=== PATIENT | male | born 1945 | race Caucasian/White ===

== ENCOUNTER → 2016-12-13 | Day surgery (SDC) | payer OTHER ==
[~2016-12-13] VITALS: Ht 175.3 cm; Wt 77.0 kg
[~2016-12-13] MED LIST: ASPI81TA28 PO; ATOR-26 PO; CLR10 PO; DC ALL ANTICOAGULANTS ONE; EZET10TA47 PO; FENTANYL CITRATE INJ 50 MCG/1 ML 2 ML VIAL ONE; FOLI1TAB7 PO; LIDOCAINE HCL 2% 2 ML VIAL (20MG/ML) ONE; LISI-729 PO; LOSA1TAB PO; MIDAZOLAM HCL 1 MG/ML 2ML VIAL ONE; PROPOFOL IV EMULSION 10 MG/ML 20 ML VIAL IV ONE; SODIUM CHLORIDE 0.9% 1000ML 1,000 ML IV SCH
[2016-12-13 07:00] VITALS: BP 168/78; PULSE 62; TEMP 36.2; O2SAT 99; Ht 175.3 cm; Wt 77.0 kg
[2016-12-13 07:45] VITALS: BP 114/86; PULSE 79; O2SAT 96
[2016-12-13 07:50] VITALS: BP 146/61; PULSE 63; O2SAT 96
[2016-12-13 07:55] VITALS: BP 109/56; PULSE 63; O2SAT 96
[2016-12-13 08:01] VITALS: BP 107/73; PULSE 67; O2SAT 100
--- NOTE | 2016-12-13 11:22 | History & Physical Bridge Note ---
H&P Re-Evaluation Bridge Note: I have examined the patient, reviewed the History & Physical and in the interval since the performance of the History & Physical I have noted the following changes of clinical significance: No changes noted
[2016-12-13 11:26] LABS: ISTAT ARTERIAL BLOOD GAS HCO3 24 meq/L (19-24); ISTAT ARTERIAL BLOOD GAS PCO2 43 mmHg (35-46); ISTAT ARTERIAL BLOOD GAS PO2 < 32 mmHg (80-95); ISTAT ARTERIAL BLOOD GAS pH 7.35 (7.35-7.45); ISTAT CARBON DIOXIDE 25 mEq/l (24-31)
[2016-12-13 11:26] LABS: ISTAT ARTERIAL BLOOD GAS HCO3 21 meq/L (19-24); ISTAT ARTERIAL BLOOD GAS PCO2 35 mmHg (35-46); ISTAT ARTERIAL BLOOD GAS PO2 72 mmHg (80-95); ISTAT ARTERIAL BLOOD GAS pH 7.38 (7.35-7.45); ISTAT CARBON DIOXIDE 22 mEq/l (24-31)
--- NOTE | 2016-12-13 11:36 | Cardiac Catheterization ---
Procedure Note Procedure Date Dec 13, 2016. Pre-Procedure Diagnosis Valvular Disease AUC Score 9 Post-Procedure Diagnosis Severe CAD, Normal LV Systolic Function, Normal Intracardiac Pressures Procedure(s) Performed Coronary Angiography, Left Heart Cath, Right Heart Cath, LV Angiography Clipper Counters Dr. Calvillo Forest [employer] Specialist Supervisor(s) None Estimated Blood Loss None Medication(s) Versed, Lidocaine 1% Summary of Findings Severe MR. 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 ACC Data Cardiac Status Clinical evaluation leading to the procedure CAD Presntation: No Sxs, no angina Anginal Classification: No symptoms Heart Failure: No Cardiogenic Shock w/in 24Hrs: No Cardiac Arrest w/in 24Hrs: No Imaging studies past 6 months: Yes Stress studies past 6 months: No Coronary Anatomy Dominant: Right Left Main (% Stenosis): Mid (50) LAD (% Stenosis): Mid (80) Circumflex (% Stenosis): Normal RCA (% Stenosis): Mid (80) Left Ventricular Angiography EF (%): 60 Mitral Regurgitation: 4+ Diagnostic Physician's Name: Anshul Calvillo, DO Status: Elective Closure Device Percutaneous Entry Location: Femoral Closure Device: Mynx Recommendations: CABG, valve replacement
--- NOTE | 2016-12-13 11:37 | Discharge Instructions ---
Discharge Instructions Procedure Procedure Date: Dec 13, 2016. Reason for Visit: Valve Regergitation *Dr Calvillo To Do*. Discharge Discharge Date: Dec 13, 2016. Discharge Diagnosis: same Last Recorded Wt (Kilograms): 77 Anesthesia Post Anesthesia Instructions: If you have had General Anesthesia or IV Sedation: * Do not drive today. * Resume driving when surgeon permits. * Do not make important decisions or sign legal documents today. * Call surgeon for: 1. Temperature elevations greater than 101 degrees F. 2. Uncontrollable pain. 3. Excessive bleeding. 4. Persistent nausea and vomiting. 5. Medication intolerance (nausea, vomiting or rash). * For nausea and vomiting use only clear liquids such as: tea, soda, bouillon until nausea subsides, then gradually increase diet as tolerated. * If you have any concerns or questions, call your surgeon's office. If physician is unavailable and it is an emergency, call 911 or go to the nearest emergency room. Instructions Activity Recommendations: limitations Recommended Home Diet: resume previous diet Allergies: Coded Allergies: No Known Allergies (Unverified , none, 04/12/14) Provider Instructions ACTIVITY RECOMMENDATIONS: It is common to feel weak and fatigue for a few days. * Do not drive or operate any motorized equipment for the next three days. * Limit stair usage (2 or 3 trips a day only) for the next three days. * Do not lift anything heavier than 10 pounds for the next three days. * Do not engage in vigorous exercise or any sports for the next five days. * You may shower the day after your procedure, but do not immerse the area for three days. Cleanse the site gently with soap and water. SPECIAL CARE INSTRUCTIONS: * You may replace the pressure dressing or band-aid the morning after the procedure. * After your procedure, it is normal to have a small bruise or small lump at the site. Examine your site daily for any change in the bruise or lump, redness, swelling, drainage or numbness. Notify your doctor if any change. BLEEDING: * If there is a small amount of bleeding at the site, lie down and apply firm pressure with a clean cloth for ten minutes. When the bleeding stops, lie quietly keeping the procedure limb straight for six hours. Notify your doctor as soon as possible. * If the bleeding does not stop after ten minutes or if there is a large amount of bleeding or spurting, call 911 immediately. Continue to lie down and hold firm pressure until help arrives. SKIN IRRITATION: * You may experience some redness and/or swelling in the area where radiation was administered. If any skin irritation occurs, please contact your family physician. FOLLOW UP VISIT: Keep any scheduled doctor appointments. Follow Up Fransisco Mrarufo Recommendations: Call your doctor if: * Temperature above 101 degrees * Pain not relieved by pain medicine ordered * There is increased drainage or redness from any incision * You have any unanswered questions or concerns. Your Doctors Instructions noted above were prepared by provider Anshul Calvillo. Patient Signature Section: Patient Instructions Signature Page Milner Ana Paula Patient (or Guardian) Signature/Date: I have read and understand the instructions given to me by my caregivers. Caregiver/RN/Doctor Signature/Date: The above-named patient and/or guardian has received patient instructions on this date. + Original Patient Signature Page (only) stays with chart. Please make copy for patient.
--- NOTE | 2016-12-13 11:49 | Procedure Note ---
Pre-Mod Sedation Assessment General Date of Moderate Sedation: Dec 13, 2016. Start 10:45 AM Vital Signs: Vital Signs Past 12 Hours Date Time Temp Pulse Resp B/P (MAP) Pulse Ox O2 Delivery O2 Flow Rate FiO2 12/13/16 10:00 59 20 132/76 99 Nasal Cannula 12/13/16 09:30 60 20 112/75 97 Nasal Cannula 12/13/16 09:00 61 20 129/77 96 Nasal Cannula 12/13/16 08:45 63 20 112/82 97 Nasal Cannula 12/13/16 08:30 65 20 122/81 95 Nasal Cannula 12/13/16 08:15 61 20 140/77 96 Nasal Cannula 12/13/16 08:04 62 22 143/76 96 Nasal Cannula 12/13/16 08:01 67 18 107/73 100 Nasal Cannula 4 12/13/16 07:55 63 18 109/56 96 Nasal Cannula 4 12/13/16 07:50 63 18 146/61 96 Nasal Cannula 4 12/13/16 07:45 79 18 114/86 96 Nasal Cannula 4 12/13/16 07:00 36.2 62 18 168/78 99 Room Air Review Cardiovascular: regular rate, rhythm Abdomen: normal bowel sounds, non tender, soft Lungs: chest non-tender, lungs clear Airway Class: I Pre-Sedation Airway Assessment Oral Cavity: WNL Able to Visualize Vocal Cords: No Short Thick Neck: No Hx of Sleep Apnea: No Smoking Status: Never Smoker Mallampati Classification: Class I ASA Classification: Class I Procedure Planning Contraindications-for Mod Sed: None Yes Notes The planned sedation has been discussed with the patient and consent obtained. I have identified the patient, determined the appropriateness of sedation and have assessed the patient immediately prior to the procedure. All medicine(s) and interventions are by my order.
--- NOTE | 2016-12-13 11:50 | Procedure Note ---
Post-Mod Sedation Assessment General Date of Moderate Sedation Dec 13, 2016. 11:20 AM Vital Signs: Vital Signs Past 12 Hours Date Time Temp Pulse Resp B/P (MAP) Pulse Ox O2 Delivery O2 Flow Rate FiO2 12/13/16 10:00 59 20 132/76 99 Nasal Cannula 12/13/16 09:30 60 20 112/75 97 Nasal Cannula 12/13/16 09:00 61 20 129/77 96 Nasal Cannula 12/13/16 08:45 63 20 112/82 97 Nasal Cannula 12/13/16 08:30 65 20 122/81 95 Nasal Cannula 12/13/16 08:15 61 20 140/77 96 Nasal Cannula 12/13/16 08:04 62 22 143/76 96 Nasal Cannula 12/13/16 08:01 67 18 107/73 100 Nasal Cannula 4 12/13/16 07:55 63 18 109/56 96 Nasal Cannula 4 12/13/16 07:50 63 18 146/61 96 Nasal Cannula 4 12/13/16 07:45 79 18 114/86 96 Nasal Cannula 4 12/13/16 07:00 36.2 62 18 168/78 99 Room Air Review - Discharge Criteria Vital Signs Stable: Yes Alert/Oriented/Conversant: Yes Returned to Baseline Mental St: Yes Nausea Absent/Minimal: Yes Pain/Discomfort/Absent/Minimal: Yes Normal/Baseline Respirations: Yes Active Bleeding?: Yes Pt Received D/C Instructions: Yes Prescriptions Given: None Specific Proced. D/C Criteria Distal Pulses Present (Cardiac: Yes Groin site assessed-Card Cath: Yes Voided Prior To Discharge: Yes Discharged Patients Adult Escort/Transportation: Yes
--- NOTE | 2016-12-13 13:49 | CARDIAC CATH REPORT ---
PROCEDURE: 1. Left heart catheterization. 2. Right heart catheterization. 3. Coronary angiography. 4. Left ventriculography. HISTORY: The patient is a 71-year-old male patient with a flail posterior leaflet of the mitral valve. The procedure is being completed prior to open heart surgery for mitral valve repair. PROCEDURE SUMMARY: After informed consent was obtained, the patient was taken to the cardiac catheterization lab where access was obtained using retrograde Seldinger technique from the right femoral artery and vein. Preformed 5-Cuban diagnostic catheter was utilized for the coronary angiograms. A 5-Cuban pigtail catheter was utilized for the left ventriculogram. A Rector-Jaja catheter was utilized for right heart pressures and cardiac outputs. Following the procedure, the arterial site was closed with a Mynx device and the patient was returned to the recovery area in stable condition. LEFT VENTRICULOGRAM: The left ventricle is of normal size with normal systolic function. The EDP is 5. There is severe mitral regurgitation. The aortic root and ascending aorta have normal morphology and diameter. CORONARY ANGIOGRAPHY: Selective injections of the left coronary artery revealed diffuse left main trunk disease reaching approximately 50%. The LAD extends to the apex of the heart. Prior to the bifurcation of a large diagonal branch, there is an 80% stenosis. The left circumflex artery consists mainly of a large lateral marginal branch. The marginal branch bifurcates in the first branch has an ostial 80% stenosis. Selective injections of the right coronary artery reveal a previous intracoronary stent. There is in-stent restenosis which reaches approximately 70-80% at its maximum. HEMODYNAMIC DATA: Right atrial pressure is a mean of 7, right ventricular pressure is 26/3, pulmonary capillary wedge pressure is a mean of 15, pulmonary artery pressure is 28/8, left ventricular pressure is 122/5, central aortic pressure is 128/70; that is all in mmHg. Cardiac output by thermal dilution is 4.7 liters per minute with a cardiac index of 2.4 liters per minute per meter squared. SUMMARY: The patient has severe mitral regurgitation by left ventriculography. Left ventricular systolic function is preserved. The patient also has severe coronary artery disease. A previous stent in the right coronary artery has restenosis to 70-80%. The left anterior descending artery before the takeoff a large diagonal branch has an 80% stenosis and then in a marginal from the left circumflex, there is an 80% ostial stenosis. RECOMMENDATIONS: For review by cardiothoracic surgery for mitral valve repair and coronary artery bypass surgery.
[2016-12-13 15:00] VITALS: BP 126/80; PULSE 69; O2SAT 96
--- NOTE | 2016-12-13 16:15 | TEE ---
*NOTICE TO RECEIVING [employer] This information is strictly Confidential and protected under [place] law. [place] law prohibits you from making any further disclosure of this information unless further disclosure is expressly permitted by the written consent of the person to whom it pertains or is authorized by law. A general authorization for the release of medical or other information is not sufficient for this purpose. Hospital accepts no responsibility if the information is made available to any other person, INCLUDING THE PATIENT. 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 * There is severe mitral regurgitation. * The mitral regurgitant jet is eccentrically directed. * The left ventricle is normal in size. * Ejection Fraction = 55-60%. * The left atrium is mildly dilated. Procedure Details * FAITH PROBE #3 WAS USED DURING PROCEDURE. TIME OUT: 0744 PROBE IN: 0750 PROBE OUT: 0801 * The study was performed in Cardiac Catheterization Lab. * Time out was conducted by the physician, nurse, and instructional technology facilitator with positive identification of patient and procedure. * Informed consent for Transesophageal Echocardiogram was obtained prior to the procedure. * An intravenous line was placed. A topical anesthetic agent was used for oropharangeal anesthesia. A bite block was inserted. * The patient's vital signs, including blood pressure, heart rate, pulse oximetry and cardiac rhythm were monitored throughout the procedure . * Fentanyl 25 mcg was administered for procedural sedation. * Midazolam 3 mg administered for sedation. * The posterior oropharynx was anesthetized using a topical anesthetic spray. A bite guard was inserted. * A multifrequency, multiplane transesopheageal echocardiographic endoscope was inserted and manipulated in the standard fashion to achieve multiplane views. * The transesophageal probe was passed without difficulty. * The usual views were obtained; basal, mid-esophageal, transgastric and aortic views. * The patient tolerated the procedure well without evidence of orophangeal or esophageal trauma. * A 2D transesophageal echocardiogram with spectral and color flow Doppler was performed. * A 2D transesophageal echocardiogram with Doppler and color flow Doppler was performed. Left Ventricle * The left ventricle is normal in size. * There is normal left ventricular wall thickness. * Left ventricular systolic function is normal. * Ejection Fraction = 55-60%. * The left ventricular wall motion is normal. Atria * The left atrium is mildly dilated. * Right atrial size is normal. * The interatrial septum is intact with no evidence for an atrial septal defect. 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 * There is severe mitral regurgitation. * The mitral regurgitant jet is eccentrically directed. Tricuspid Valve * The tricuspid valve is normal in structure and function. Aortic Valve * The aortic valve is normal in structure and function. Pulmonic Valve * The pulmonic valve is not well visualized. Great Vessels * The aortic root and proximal ascending aorta are normal sized. Pericardium * There is no pericardial effusion.
== END ==
LOC: C.CPL 06:41
PROVIDERS: ATTEND Internal Medicine Interventional Cardiology
DX: I25.10 Atherosclerotic heart disease of native coronary artery without angina pectoris (principal); I25.84 Coronary atherosclerosis due to calcified coronary lesion; E78.5 Hyperlipidemia, unspecified; I10 Essential (primary) hypertension; I34.0 Nonrheumatic mitral (valve) insufficiency; Z79.82 Long term (current) use of aspirin; Z82.49 Family history of ischemic heart disease and other diseases of the circulatory system; Z82.3 Family history of stroke

== ENCOUNTER 2017-09-23 17:37 | Emergency (ER) | payer OTHER ==
[~2017-09-23] VITALS: Ht 177.8 cm; Wt 75.0 kg
[~2017-09-23 17:37] MED LIST changes: -DC ALL ANTICOAGULANTS ONE; -FENTANYL CITRATE INJ 50 MCG/1 ML 2 ML VIAL ONE; -FOLI1TAB7 PO; -LIDOCAINE HCL 2% 2 ML VIAL (20MG/ML) ONE; -LISI-729 PO; -MIDAZOLAM HCL 1 MG/ML 2ML VIAL ONE; -PROPOFOL IV EMULSION 10 MG/ML 20 ML VIAL IV ONE; -SODIUM CHLORIDE 0.9% 1000ML 1,000 ML IV SCH
[2017-09-23 17:52] VITALS: TEMP 37.1; Ht 177.8 cm; Wt 75.0 kg
--- NOTE | 2017-09-23 19:29 | DIAGNOSTIC IMAGING REPORT ---
L KNEE 3 VIEWS HISTORY: 72 years-old Male injury acute left knee pain status post injury COMPARISON: None available TECHNIQUE: 3 views of the left knee FINDINGS: Mild tricompartmental osteoarthritis. Moderate joint effusion with mild to moderate soft tissue swelling about the knee. Linear lucency of the medial patella seen only on the sunrise view is compatible with acute nondisplaced fracture. Additional acute minimally displaced fracture involves the proximal fibular metaphysis with mild associated surrounding soft tissue swelling. 4 linear metallic density foci measuring up to 3 mm project over the medial soft tissues suggesting surgical clips. Peripheral vascular disease. IMPRESSION: 1. Acute nondisplaced fracture of the medial patellar facet with associated soft tissue swelling and moderate joint effusion. 2. Acute minimally displaced fracture of the proximal metaphyseal fibula. The above report was generated using voice recognition software. It may contain grammatical, syntax or spelling errors. Electronically signed by: Jorge David M.D. 09/23/2017 7:28 PM Dictated Date/Time: 09/23/2017 7:25 PM
[2017-09-23 19:54] LABS: BASO % 0.1 %; BASO ABS # 0.01 K/uL (0-0.2); EOS % 0.5 %; EOS ABS # 0.05 K/uL (0-0.5); HEMATOCRIT 41.3 % (42-52); HEMOGLOBIN 14.4 g/dL (14.0-18.0); IG# 0.02 K/uL (0.00-0.02); LYMPH % 7.3 %; LYMPH ABS # 0.74 K/uL (1.2-3.4); MEAN CELL VOLUME 87.3 fL (80-100); MEAN CORPUSCULAR HEMOGLOBIN 30.4 pg (25-34); MEAN CORPUSCULAR HGB CONC 34.9 g/dl (32-36); MEAN PLATELET VOLUME 9.6 fL (7.4-10.4); MONO % 7.1 %; MONO ABS # 0.72 K/uL (0.11-0.59); NEUT % 84.8 %; NEUT ABS # 8.64 K/uL (1.4-6.5); PLATELET COUNT 185 K/uL (130-400); RED CELL DISTRIBUTION WIDTH CV 14.5 % (11.5-14.5); WHITE BLOOD COUNT 10.18 K/uL (4.8-10.8)
--- NOTE | 2017-09-23 19:55 | EMERGENCY ROOM VISIT NOTE ---
History Report prepared by Kenan: Akin Ortiz Under the Supervision of: Dr. Yo Mac M.D. First contact with patient: 18:55 Chief Complaint: LEG PAIN,LEG INJURY Stated Complaint: POSSIBLE BROKEN LEG History of Present Illness The patient is a 72 year old male who presents to the Emergency Room with complaints of constant pain in the left leg secondary to a traumatic accident that occurred at 1030 this morning, 8.5 hours prior to arrival. 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 He accidently slipped down off the step when trying to enter the Skid Steer and pulled the lever that dropped the hogan down on his leg. This caused a "crushing" injury to the left leg. He states that he was able to reach the lever and release the leg out of the arm of the tractor. He denies any numbness in the foot, or weakness in the lower extremities. He has been using crutches to get around following the accident. The patient is up to date on his Tetanus Shot. 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 A total of 10 systems reviewed and were otherwise negative. Past Medical & Surgical Medical Problems: (1) Heart disease Heart disease Old medical records were reviewed. Nurse's notes were reviewed and I agree with. Family History Omitted secondary to age. 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) Current/Historical Medications Scheduled Aspirin (Aspirin Ec), 81 MG PO QAM Atorvastatin (Lipitor), 80 MG PO HS Ezetimibe (Zetia), 10 MG PO QAM Loratadine (Claritin), 10 MG PO DAILY Losartan Potassium (Cozaar), 1 TAB PO DAILY Scheduled PRN Naproxen Ds (Naprosyn Ds), 550 MG PO BID PRN for Pain Oxycodone Immediate Rel Tab (Roxicodone Ir), 1-2 TAB PO Q4H PRN for Severe Pain Allergies Coded Allergies: No Known Allergies (Unverified , none, 09/23/17) Physical Exam Vital Signs Date Time Temp Pulse Resp B/P (MAP) Pulse Ox O2 Delivery O2 Flow Rate FiO2 09/23/17 17:52 37.1 93 20 131/100 96 Room Air Physical Exam General: Non-ill appearing older male in no acute distress. HEENT: Normal cephalic atraumatic. Pupils are equal round and reactive to light. Extraocular movements are intact. Oropharynx is pink with moist mucous membranes. No swelling of the mouth lips or tongue. Neck: Supple with a midline trachea. No meningeal signs or stiffness, no JVD or bruits. No Stridor. Chest: Clear to auscultation bilaterally. No wheezes or rhonchi. No increased work of breathing. Heart: regular rate and rhythm. Abdomen: Soft nontender, nondistended without rebound guarding or rigidity. Extremities: The left knee is moderately swollen diffusely, there is an abrasion to the medial aspect of the knee. There is no instability of the joint. He does have difficulty extending the knee. There is no pain/numbness/ swelling of the left foot. There is goo capillary refill. There is moderate swelling in the proximal lateral tibia/fibula. No evidence of compartment syndrome. Spine/Back. Non tender to palpation. No CVA tenderness Skin: Good turgor without rashes. Neurologic exam: Cranial nerves two through 12 are intact. Motor and sensation are intact and symmetrical throughout. Medical Decision & Procedures ER Provider Diagnostic Interpretation: Radiology results as stated below per my review and radiologist interpretation: L KNEE 3 VIEWS HISTORY: 72 years-old Male injury acute left knee pain status post injury COMPARISON: None available TECHNIQUE: 3 views of the left knee FINDINGS: Mild tricompartmental osteoarthritis. Moderate joint effusion with mild to moderate soft tissue swelling about the knee. Linear lucency of the medial patella seen only on the sunrise view is compatible with acute nondisplaced fracture. Additional acute minimally displaced fracture involves the proximal fibular metaphysis with mild associated surrounding soft tissue swelling. 4 linear metallic density foci measuring up to 3 mm project over the medial soft tissues suggesting surgical clips. Peripheral vascular disease. IMPRESSION: 1. Acute nondisplaced fracture of the medial patellar facet with associated soft tissue swelling and moderate joint effusion. 2. Acute minimally displaced fracture of the proximal metaphyseal fibula. The above report was generated using voice recognition software. It may contain grammatical, syntax or spelling errors. Electronically signed by: Jorge David M.D. 09/23/2017 7:28 PM Dictated Date/Time: 09/23/2017 7:25 PM Laboratory Results 09/23/17 19:33 Red Blood Count 4.73, Mean Corpuscular Volume 87.3, Mean Corpuscular Hemoglobin 30.4, Mean Corpuscular Hemoglobin Concent 34.9, Mean Platelet Volume 9.6, Neutrophils (%) (Auto) 84.8, Lymphocytes (%) (Auto) 7.3, Monocytes (%) (Auto) 7.1, Eosinophils (%) (Auto) 0.5, Basophils (%) (Auto) 0.1, Neutrophils # (Auto) 8.64, Lymphocytes # (Auto) 0.74, Monocytes # (Auto) 0.72, Eosinophils # (Auto) 0.05, Basophils # (Auto) 0.01 09/23/17 19:33 Test 09/23/17 19:33 White Blood Count 10.18 K/uL (4.8-10.8) Red Blood Count 4.73 M/uL (4.7-6.1) Hemoglobin 14.4 g/dL (14.0-18.0) Hematocrit 41.3 % (42-52) Mean Corpuscular Volume 87.3 fL (80-100) Mean Corpuscular Hemoglobin 30.4 pg (25-34) Mean Corpuscular Hemoglobin Concent 34.9 g/dl (32-36) Platelet Count 185 K/uL (130-400) Mean Platelet Volume 9.6 fL (7.4-10.4) Neutrophils (%) (Auto) 84.8 % Lymphocytes (%) (Auto) 7.3 % Monocytes (%) (Auto) 7.1 % Eosinophils (%) (Auto) 0.5 % Basophils (%) (Auto) 0.1 % Neutrophils # (Auto) 8.64 K/uL (1.4-6.5) Lymphocytes # (Auto) 0.74 K/uL (1.2-3.4) Monocytes # (Auto) 0.72 K/uL (0.11-0.59) Eosinophils # (Auto) 0.05 K/uL (0-0.5) Basophils # (Auto) 0.01 K/uL (0-0.2) RDW Standard Deviation 47.0 fL (36.4-46.3) RDW Coefficient of Variation 14.5 % (11.5-14.5) Immature Granulocyte % (Auto) 0.2 % Immature Granulocyte # (Auto) 0.02 K/uL (0.00-0.02) Anion Gap 8.0 mmol/L (3-11) Est Creatinine Clear Calc Drug Dose 59.6 ml/min Estimated GFR () 71.3 Estimated GFR (Non- 61.5 BUN/Creatinine Ratio 20.6 (10-20) Calcium Level 8.6 mg/dl (8.5-10.1) Laboratory studies as stated above per my review. ED Course 1855: Past medical records reviewed. The patient was evaluated in room B10, and a complete history and physical examination were performed. 2028: I discussed the case with Dr. Smith - [facility]. He suggests a posterior splint and crutches for now. He can see the patient tomorrow morning in the office, or he can schedule with Frank. It is his choice. 203: Upon reevaluation, the patient is resting in bed. I discussed the results and treatment plan with him. He verbalized agreement of the treatment plan. The patient was discharged home. Medical Decision Differential diagnosis includes; fracture, dislocation, compartment syndrome, contusion, hematoma, hemarthrosis. This patient comes in as described above he had a crush injury to his left knee/ leg. He has some difficulty extending which may be due to pain he has a large effusion on exam. No instability in the knee. Distally, he has good capillary refill normal pulse exam. He has an abrasion but nothing that requires laceration repair. He is up-to-date on his tetanus booster. He is no evidence suggest neurovascular compromise or compartment syndrome. X-rays were obtained which show a proximal fibula fracture as well as a patella fracture. I did a CAT scan as well. He does have a nondisplaced patella fracture as well as a nondisplaced tibial fracture which does not involve the plateau. He also has a fibular head fracture and a hematoma in the lyon. He has no evidence of compartment syndrome at this point. He has no numbness weakness or pain in the feet. He is able to move the toes and feet without any difficulty and has no pain with passive motion of the toes. He does have some difficulty with extension of the knee and some of this may be pain related but certainly ligamentous injury is also concerned. I did discuss the case with the on-call orthopedist Dr. Johnson, and he said that he could follow-up with him tomorrow or he could follow up with David as he has been seen by them before. He recommended a knee immobilizer, crutches, and pain medicine. I did these measures. I told him to ice and elevate and talked him at length about warning signs for compartment syndrome. Return immediately if: pain in the foot, numbness or weakness, worsening symptoms, pain in the toes, any new problems or concerns. He should have close follow-up with the orthopedist tomorrow morning for recheck. He is happy with plan discharged to home. Medication Reconcilliation Current Medication List: was personally reviewed by me Blood Pressure Screening Patient's blood pressure: Elevated blood pressure Blood pressure disposition: Elevated BP felt to be situational Consults Time Called: 2019 Consulting Physician: Dr. Castshari [facility] Returned Call: 2028 I discussed the case with Dr. Castshari [facility]. He suggests a posterior splint and crutches for now. He can see the patient tomorrow morning in the office, or he can schedule with Frank. It is his choice. Impression Primary Impression: Patella fracture Additional Impressions: Tibia fracture Fibula fracture Hematoma Hemarthrosis Scribe Attestation The scribe's documentation has been prepared under my direction and personally reviewed by me in its entirety. I confirm that the note above accurately reflects all work, treatment, procedures, and medical decision making performed by me. Departure Information Dispostion Home / Self-Care Prescriptions Oxycodone Immediate Rel Tab (ROXICODONE IR) 5 Mg Tab 1-2 TAB PO Q4H Y for Severe Pain, #15 TAB Prov: Yo Mac M.D. 09/23/17 Referrals Femi Roach M.D.([facility]) (PCP) Patient Instructions My [facility] Problem Qualifiers
[2017-09-23 20:10] LABS: CALCIUM 8.6 mg/dl (8.5-10.1); CREATININE 1.19 mg/dl (0.60-1.40); POTASSIUM 4.2 mmol/L (3.5-5.1)
--- NOTE | 2017-09-23 20:13 | DIAGNOSTIC IMAGING REPORT ---
LEFT KNEE AND LEFT LOWER LEG CT CT DOSE: 597.24 mGy.cm HISTORY: crush injury to knee and lower leg TECHNIQUE: Multiaxial CT images of the left knee and left lower leg were performed and reformatted in the sagittal and coronal plane without the use of contrast. A dose lowering technique was utilized adhering to the principles of ALARA. COMPARISON: Left knee 09/23/2017. FINDINGS: There is confirmation of a nondisplaced fracture within the medial aspect of the patella which extends to the patellar facet. The distal femur is intact. Displaced fracture at the fibular head/neck is again noted. No fracture or dislocation within the ankle. Best seen on the coronal images there is a nondisplaced fracture within the proximal metadiaphysis of the tibia. This does not clearly extend to the tibial plateau. This is best seen on coronal image 68. Moderate hemarthrosis. Anterior and medial soft tissue swelling within the knee. There appears be a small intramuscular hematoma within the anterolateral compartment of the proximal lower leg. This measures approximately 3.4 x 3.1 cm. IMPRESSION: 1. Nondisplaced fractures at the medial patella, proximal metadiaphysis of the tibia, and fibular head. 2. Moderate hemarthrosis within the knee. 3. A 3.4 x 3.1 cm intramuscular hematoma within the anterolateral compartment of the proximal lower leg. Electronically signed by: Solitario Barraza M.D. 09/23/2017 8:12 PM Dictated Date/Time: 09/23/2017 8:04 PM
[2017-09-23] MEDS ORDERED: NAPR-1168 PO (20:15)
[2017-09-23] MEDS ORDERED: OXYC1TAB3 PO (20:41)
[2017-09-23] MEDS ORDERED: OXYCODONE IR HOME PACK PO ONE (20:45)
[2017-09-23 21:19] VITALS: BP 112/67; PULSE 76; O2SAT 96
== END 2017-09-23 21:29 | disposition home or self-care (01) ==
LOC: C.EDB 17:37
DX: S82.002A Unspecified fracture of left patella, initial encounter for closed fracture (principal); S89.202A Unspecified physeal fracture of upper end of left fibula, initial encounter for closed fracture; S82.202A Unspecified fracture of shaft of left tibia, initial encounter for closed fracture; S80.12XA Contusion of left lower leg, initial encounter; W31.89XA Contact with other specified machinery, initial encounter; I51.9 Heart disease, unspecified; Z79.82 Long term (current) use of aspirin